=== PATIENT | female | born 1935 | race Caucasian/White ===

== ENCOUNTER 2020-09-20 18:55 | Inpatient (IN) | payer OTHER ==
[~2020-09-20] VITALS: Ht 162.6 cm; Wt 63.5 kg
--- NOTE | 2020-09-20 19:30 | NUR ---
JUVENAL FROM HOME FOR C/O LLE EDEMA SICNE THIS MORNING. PT DENIED ANY PAIN OR DIOSCOMFORT ON THE SITE. DENIED ANY FALL OR TRAUMA. NO SOB. NO CP. PT WAS PLACED IN BED 9, ON MONITR,. VSS. IV LINE STARTED .WILL CONT TO MONITOR ,
[2020-09-20 19:38] LABS: BASOPHILS % (AUTO) 0.3 % (0.0-2.0); HEMATOCRIT 24 % (33-45); HEMOGLOBIN 7.5 g/dL (11.5-14.8); LYMPHOCYTES # (AUTO) 0.6 /CMM (0.8-4.8); LYMPHOCYTES % (AUTO) 4.3 % (20.0-44.0); MEAN CORPUSCULAR HGB CONC 31 g/dl (31.0-36.0); MEAN CORPUSCULAR VOLUME 92 fL (82-100); MONOCYTES # (AUTO) 0.6 /CMM (0.1-1.30); MONOCYTES % (AUTO) 4.5 % (2.0-12.0); NEUTROPHILS # (AUTO) 12.6 /CMM (1.8-8.9); NEUTROPHILS % (AUTO) 90.9 % (43.0-81.0); PLATELET COUNT (AUTO) 226 /CMM (150-450); RED BLOOD CELL COUNT(AUTO) 2.61 MIL/uL (4.0-5.2); WHITE BLOOD COUNT (AUTO) 13.9 K/uL (4.3-11.0)
[2020-09-20 19:48] LABS: CALCIUM, SERUM 9.1 mg/dL (8.5-10.1); CARBON DIOXIDE 27 mmol/L (21-32); CHLORIDE 102 mmol/L (98-107); CREATININE 2.2 mg/dL (0.6-1.3); GLUCOSE 182 mg/dL (74-106); POTASSIUM 4.1 mmol/L (3.5-5.1); SODIUM SERUM 140 mmol/L (136-145); UREA NITROGEN, BLOOD 55 mg/dL (7-18)
--- NOTE | 2020-09-20 20:30 | NUR ---
CALLED ANANDA MAXWELL
--- NOTE | 2020-09-20 20:39 | NUR ---
DR WEBB SPEAKING WITH [facility]
--- NOTE | 2020-09-20 20:42 | NUR ---
ANANDA FOX SPEAKING WITH DR WEBB
--- NOTE | 2020-09-20 20:49 | NUR ---
DR. WEBB SPEAKING WITH RADIOLOGIST
[2020-09-20] MEDS ORDERED: HEPARIN INFUSION/D5W 500 ML IV ONE ×2 (20:51→21:00)
[2020-09-20] MEDS ORDERED: HEPARIN SODIUM, PORCINE 5000 UNITS/1 ML VIAL ONE (20:52)
--- NOTE | 2020-09-20 20:55 | NUR ---
covid swab collected and sent to lab
[2020-09-20] MEDS ORDERED: HEPARIN SODIUM, PORCINE 5000 UNITS/1 ML VIAL IV ONE (21:00)
--- NOTE | 2020-09-20 21:03 | NUR ---
CALLED [facility] PAGED DR BRYANT FOR ADMISSION
[2020-09-20 21:48] LABS: ALBUMIN 2.4 g/dL (3.4-5.0); BILIRUBIN,DIRECT 0.2 mg/dL (0.0-0.2); BILIRUBIN,TOTAL 0.6 mg/dL (0.2-1.0); TOTAL PROTEIN, SERUM 7.6 g/dL (6.4-8.2)
--- NOTE | 2020-09-20 23:14 | NUR ---
REPORT GIVEN TO SANTOS
[2020-09-20 23:20] VITALS: BP 120/46
--- NOTE | 2020-09-20 23:26 | NUR ---
pt was transferred to the third floor under ACLS.
[2020-09-20] MEDS ORDERED: ACETAMINOPHEN 650 MG/SUPP.RECT RC PRN (23:30)
[2020-09-20] MEDS ORDERED: ONDANSETRON HCL/PF 4 MG/2 ML VIAL IVP PRN (23:30)
[2020-09-20] MEDS ORDERED: MORPHINE SULFATE INJ 2 MG/ML DISP.SYRIN IV PRN (23:30)
--- NOTE | 2020-09-21 01:04 | NUR ---
ADMISSION NOTES: ADMITTED AN 84YO ESTONIAN SEPAKING FEMALE FROM HOME BROUGHT TO [facility] WITH A DIAGNOSIS OG DVT LEFT LEG, AND CHRONIC ANEMIA., PATIENT HAS CURRENTLY A HEPARIN DRIP ON GOING AT23CC/HR. ADMISSION ASSESSMENTS COMPLETED WITH THE HELP OF AN COCONUT BOILER. IV SITE ON LEFT AC WITH G#20 ON GOING HEPARIN DRIP. INSTRUCTED PATIENT TO REMAIN NPO. PATIENT FOR PTT BLOOD DRAW AT 0300 AM. WILL AWAIT FOR RESULTS. POSITIONED PATIENT COMFORTABLY IN BED. PLACED CALL LIGHT WITHIN PATIENT'S REACH. WILL MONITOR WHILE INPATIENT.
[2020-09-21] MEDS: IV D5/ 0.9% NACL 1,000 ML IV PRN ×2 (01:16→16:59)
[2020-09-21] MEDS: FAMOTIDINE/PF INJ 20 MG/2 ML VIAL IV SCH ×3 (01:18→21:27)
--- NOTE | 2020-09-21 01:46 | NUR ---
NURSES NOTES: CLARIFIED WITH WHETHER TO CONTINUE THE HEPARIN SQ MEDICATION ADMINISTRATION OR DC.PER DR. BRYANT DC THE HEPARIN SQ ORDER AND CONTINUE THE HEPARIN DRIP. ORDERS NOTED AND CARRIED OUT.
[2020-09-21 03:53] LABS: BASOPHILS # (AUTO) 0.1 /CMM (0.0-0.2); BASOPHILS % (AUTO) 0.5 % (0.0-2.0); EOSINOPHILS % (AUTO) 0.2 % (0.0-6.0); HEMATOCRIT 23 % (33-45); HEMOGLOBIN 7.3 g/dL (11.5-14.8); LYMPHOCYTES # (AUTO) 1.4 /CMM (0.8-4.8); LYMPHOCYTES % (AUTO) 9.4 % (20.0-44.0); MEAN CORPUSCULAR HGB CONC 32 g/dl (31.0-36.0); MEAN CORPUSCULAR VOLUME 91 fL (82-100); MONOCYTES # (AUTO) 0.7 /CMM (0.1-1.30); MONOCYTES % (AUTO) 5.1 % (2.0-12.0); NEUTROPHILS # (AUTO) 12.2 /CMM (1.8-8.9); NEUTROPHILS % (AUTO) 84.8 % (43.0-81.0); PLATELET COUNT (AUTO) 227 /CMM (150-450); RED BLOOD CELL COUNT(AUTO) 2.49 MIL/uL (4.0-5.2); WHITE BLOOD COUNT (AUTO) 14.4 K/uL (4.3-11.0)
[2020-09-21 04:00] VITALS: BP 94/54
--- NOTE | 2020-09-21 04:39 | NUR ---
NURSES NOTES: RECEIVED A CALL FROM LAB- [facility]- PATIENT WITH A PTT RESULT >170. DR BRYANT INFORMED THROUGH MESSAGING. HE RESPONDED AT 0529 TO FOLLOW PROTOCOL. PROTOCOL THEN INITIATED. PATIENT'S HEPARIN DRIP STOPPED FOR AN HOUR PER PROTOCOL. THEN PROTOCOL FOLLOWED TO DECREASE RATE- RESULTING TO 950MG/HR AT 19CC/HR RATE. SAID RATE FOLLOWED PER PROTOCOL. CO SIGNED BY YUAN GRAHAM RN.
[2020-09-21] MEDS: HEPARIN INFUSION/D5W 500 ML IV PRN (07:01)
--- NOTE | 2020-09-21 07:45 | NUR ---
CLOSING NOTES: PATIENT IN THE ROOM , UNABLE TO REST WELL. IVF ON RIGHT HAND G#22- HEPARIN DRIP AT 19ML/HR. IVF ON LEFT AC #20 D5 NS @70 ML/HR. NPO INSTRUCTIONS REINFORCED. BED ALARM KEPT ON. SAFETY AND FALL PRECAUTIONS OBSERVED. ASSISTED PATIENT TO MAKE USE OF THE BED HERCULES. ENDORSE PATIENT TO DAY SHIFT NURSE.
[2020-09-21 08:00] VITALS: BP 117/50
[2020-09-21 08:26] LABS: ALANINE AMINOTRANSFERASE 55 U/L (12-78); ALBUMIN 2.1 g/dL (3.4-5.0); ALKALINE PHOSPHATASE 122 U/L (46-116); ASPARTATE AMINOTRANSFERASE 52 U/L (15-37); BILIRUBIN,TOTAL 0.4 mg/dL (0.2-1.0); CALCIUM, SERUM 9.1 mg/dL (8.5-10.1); CARBON DIOXIDE 21 mmol/L (21-32); CHLORIDE 103 mmol/L (98-107); GLUCOSE 125 mg/dL (74-106); MAGNESIUM 2.4 mg/dL (1.8-2.4); POTASSIUM 4.2 mmol/L (3.5-5.1); SODIUM SERUM 140 mmol/L (136-145); UREA NITROGEN, BLOOD 57 mg/dL (7-18)
[2020-09-21] MEDS ORDERED: LOSA25TA27 PO (08:37)
[2020-09-21] MEDS ORDERED: HYDR25TA4 PO (08:37)
[2020-09-21] MEDS ORDERED: ATOR80TA PO (08:37)
[2020-09-21] MEDS ORDERED: CITA10TA9 PO (08:37)
[2020-09-21] MEDS ORDERED: LINA72CA PO (08:37)
[2020-09-21] MEDS ORDERED: OMEP20CA15 PO (08:37)
[2020-09-21 08:53] LABS: CHOLESTEROL 101 mg/dL (<200); HDL CHOLESTEROL 68 mg/dL (40-60); LDL 35 mg/dL (0-99); THYROID STIMULATING HORMONE 1.943 uIU/mL (0.358-3.74); TRIGLYCERIDES 59 mg/dL (30-150)
[2020-09-21] MEDS ORDERED: HEPARIN SODIUM, PORCINE 5000 UNITS/1 ML VIAL SQ SCH (09:00)
[2020-09-21] MEDS ORDERED: VANCOMYCIN 500 MG in IV D5W 100ml IV SCH (10:00)
[2020-09-21] MEDS ORDERED: PIPERACILLIN /TAZOBACTAM 2.25 G in IV D5W 50 ML IV SCH (12:00)
[2020-09-21 14:29] LABS: BILIRUBIN,URINE NEGATIVE (NEGATIVE); COLOR,URINE YELLOW (YELLOW); LEUKOCYTE ESTERASE ,URINE TRACE (NEGATIVE); NITRITE, URINE NEGATIVE (NEGATIVE); PROTEIN,URINE TRACE mg/dl (NEGATIVE); UGLUCOSE NEGATIVE (NEGATIVE); UROBILINOGEN,URINE 0.2 EU/dL (0.2)
[2020-09-21 16:03] VITALS: BP 116/55
[2020-09-21 17:51] LABS: BACTERIA,URINE 1+ /HPF (None Seen); RBC,URINE 0-2 /HPF (0-2); SQUAMOUS EPITHELIAL CELL,UR Few /HPF (None Seen)
[2020-09-21 17:52] LABS: COARSE GRANULAR CASTS,URINE Few /LPF (None Seen); URINE AMORPHOUS URATE Moderate /HPF (None Seen)
--- NOTE | 2020-09-21 18:32 | NUR ---
RN CLOSING NOTE PT IS AWAKE IN BED FINISHING UP BREAKFAST. PT IS A/OX3 AND COOPERATIVE. PT IS SEMI-FOWLERS POSITION WITH NO SIGNS OF RESPIRATORY DISTRESS. NO SOB PRESENT. PT IS CONTINENT. PT IS ABLE TO FEED INDEPENDENTLY. ROUTINE MEDS GIVEN. CALL LIGHT WITHIN REACH, BED IN THE LOWEST POSITION. SAFETY MEASURES IMPLEMENTED.
--- NOTE | 2020-09-21 18:37 | NUR ---
PT'S PTT FOR 1700 IS STILL PENDING UP TO THIS TIME.AWAITING FOR PTT RESULT.
--- NOTE | 2020-09-21 19:06 | NUR ---
CALLED LAB FOR PENDING PTT RESULT AND THEY SAID THAT THEY WILL RELEASE THE RESULT NOW.
[2020-09-21 19:32] VITALS: BP 98/43
--- NOTE | 2020-09-21 19:36 | NUR ---
NO PTT RESULT STILL AVAILABLE TO THIS TIME -CALLED LAB AND THEY STILL CAN'T GET THE RESULT.STOPPED PT'S HEPARIN DRIP AND ENDORSED TO NIGHT NURSE CARE.
--- NOTE | 2020-09-21 19:42 | NUR ---
BLOOD DRAWN FOR PTT (SECOND TIME) AND STILL NO RESULT OBTAINED.REPORTED TO TROLLEY WIRE INSTALLER AND NIGHT NURSE FOR FOLLOW UP.
[2020-09-21 20:00] VITALS: BP 98/84
--- NOTE | 2020-09-21 22:30 | NUR ---
PTT greater then 170 md Sneed called made aware titrate to 13ml/hr 650 units hours machine change john De La Paz
[2020-09-21 23:49] VITALS: BP 96/48
[2020-09-22] VITALS (7 sets, daily range): BP systolic 96–126; BP diastolic 43–55
[2020-09-22] MEDS: HEPARIN INFUSION/D5W 500 ML IV PRN (03:13)
--- NOTE | 2020-09-22 05:31 | NUR ---
CLOSING NOTES: AWAKE AND ORIENTATED X4 KHMER SPEAK MAIN LANGUAGE WITH SOME UNDERTANDING OF SAMI HEPARIN GTT D/T DVT LEFT LEG LAST PTT AND HEPARIN CHANGE 22:30 09/21 TO 650 UNITS/HR 13 ML/HR RT HAND ORDERED FOR NEXT PTT AT 04:30 PTT PENDING NO NOTEDD BLEEDING NOTED FROM HER GUMS/UA/NOSE ZOFRAN GIVEN 1 X FOR NAUSEA AND EFFECTIVE
[2020-09-22 07:01] LABS: BASOPHILS % (AUTO) 0.2 % (0.0-2.0); EOSINOPHILS % (AUTO) 0.8 % (0.0-6.0); HEMATOCRIT 21 % (33-45); LYMPHOCYTES # (AUTO) 1.2 /CMM (0.8-4.8); MEAN CORPUSCULAR HGB CONC 31 g/dl (31.0-36.0); MEAN CORPUSCULAR VOLUME 93 fL (82-100); MONOCYTES # (AUTO) 0.9 /CMM (0.1-1.30); MONOCYTES % (AUTO) 7.5 % (2.0-12.0); NEUTROPHILS # (AUTO) 9.9 /CMM (1.8-8.9); NEUTROPHILS % (AUTO) 81.5 % (43.0-81.0); PLATELET COUNT (AUTO) 244 /CMM (150-450); RED BLOOD CELL COUNT(AUTO) 2.22 MIL/uL (4.0-5.2); WHITE BLOOD COUNT (AUTO) 12.2 K/uL (4.3-11.0)
[2020-09-22 07:24] LABS: HEMOGLOBIN 6.4 g/dL (11.5-14.8)
--- NOTE | 2020-09-22 07:30 | NUR ---
EXTENSION SPECIALIST OPENING NOTES PATIENT IN BED. A/O X3. NO SOB NOTED. NO S/SX OF RESPIRATORY DISTRESS. TELE READING SR 97. IV SITE R HAND #22G, L AC #22 G, INTACT, D5NS RUNNING @ 70 ML/HR. PROVIDED SAFETY MEASURES. BED IN LOWEST POSITION, LOCKED. SIDE RAILS UP X2. CALL LIGHT WITHIN REACH. WILL CONTINUE PLAN OF CARE.
[2020-09-22 07:32] LABS: CALCIUM, SERUM 8.5 mg/dL (8.5-10.1); CARBON DIOXIDE 22 mmol/L (21-32); CHLORIDE 104 mmol/L (98-107); CREATININE 1.8 mg/dL (0.6-1.3); GLUCOSE 130 mg/dL (74-106); MAGNESIUM 2.3 mg/dL (1.8-2.4); PHOSPHORUS 4.6 mg/dL (2.5-4.9); POTASSIUM 4.2 mmol/L (3.5-5.1); SODIUM SERUM 140 mmol/L (136-145); UREA NITROGEN, BLOOD 63 mg/dL (7-18)
--- NOTE | 2020-09-22 07:32 | NUR ---
call from the lab with AM critical results H/H 6.4/20.7 plaved a text to the hospitalist to make him aware told the on coming RN turned the Hep gtt of until we hear from the MD .
--- NOTE | 2020-09-22 07:46 | NUR ---
RN NOTES CRITICAL LAB VALUE H/H 6.4/20.[address] WASHINGTON AND WAITING FOR ORDERS. WILL CONTINUE TO MONITOR FOR ANY SIGNS OF BLEEDING.
[2020-09-22] MEDS: FAMOTIDINE/PF INJ 20 MG/2 ML VIAL IV SCH ×2 (07:52→23:58)
[2020-09-22] MEDS: IV D5/ 0.9% NACL 1,000 ML IV PRN (09:27)
[2020-09-22 12:10] LABS: EOSINOPHILS % (MANUAL) 1 % (0-4); LYMPHOCYTES % (MANUAL) 9 % (16-48); MONOCYTES % (MANUAL) 10 % (0-11.0); MYELOCYTES % 1 % (0-0); NEUTROPHILS % (MANUAL) 79 (42-76)
[2020-09-22] MEDS: CEFTRIAXONE 1 G in IV D5W 50 ML IV SCH (13:00)
[2020-09-22] MEDS ORDERED: VANCOMYCIN 1 GM in IV D5W 250 ML IV SCH (14:00)
--- NOTE | 2020-09-22 19:41 | NUR ---
RN CLOSING NOTES PATIENT RESTING IN BED. A/O X3-4. AFEBRILE. IN NO APPARENT DISTRESS. R HAND @22G, L AC #20 G. SAFETY MEASURES MAINTAINED. BED IN LOWEST POSITION, LOCKED. SIDE RAILS UP X2. CALL LIGHT WITHIN REACH. WILL ENDORSE TO NIGHT FOR KOKI.
--- NOTE | 2020-09-22 20:53 | NUR ---
MS/TELE/RN PATIENT IS SLEEPING AT THIS TIME, ,APPEAR COMFORTABLE, NO SIGNS OF DISTRESS NOTED, FALL PRECAUTIONS PER PROTOCOL, CALL LIGHT IN REACH. WILL MONITOR.
[2020-09-22 22:00] LABS: FERRITIN 1596 ng/mL (8-388); THYROID STIMULATING HORMONE 1.412 uIU/mL (0.358-3.74)
[2020-09-23] VITALS (8 sets, daily range): BP systolic 116–142; BP diastolic 38–58
[2020-09-23] MEDS: IV D5/ 0.9% NACL 1,000 ML IV PRN ×2 (04:18→21:59)
--- NOTE | 2020-09-23 07:30 | NUR ---
MS/RN Opening note Patient received from [facility] shift. A/O X2-3, vital signs within normal range for patient, no fever noted. Heplock to right hand infusing normal saline at 70ml/hr, no signs of any infiltration seen. Continue to wait for blood to be ready for infusion. Consent already signed and placed in chart. Safety measures in place, call light within reach. Will continue to monitor and ensure safety.
--- NOTE | 2020-09-23 07:43 | NUR ---
MS/TELE/RN PATIENT IS AWAKE, ALERT, ORIENTED, COMFORTABLE, NO C/O PAIN, NO DISTRESS NOTED, ALL NEEDS ATTENDED AT THIS TIME, ENDORSED TO NEXT RN FOR CONTINUITY OF CARE.
[2020-09-23 08:10] LABS: AFP, TUMOR MARKER 3.7 ng/mL (0.0-8.3)
--- NOTE | 2020-09-23 08:18 | NUR ---
MS/RN Transfusion One unit blood transfusion started, vital signs to be recorded as per hospital protocol.
[2020-09-23] MEDS ORDERED: FAMOTIDINE (20 MG) 20 MG TABLET PO SCH (09:00)
[2020-09-23] MEDS ORDERED: FAMOTIDINE/PF INJ 20 MG/2 ML VIAL IV SCH (09:00)
--- NOTE | 2020-09-23 09:00 | NUR ---
MS/RN Medications Morning medications administered as ordered.
--- NOTE | 2020-09-23 10:26 | NUR ---
MS/RN Rounds Patient stable during transfusion, no reaction seen.
--- NOTE | 2020-09-23 11:30 | NUR ---
MS/RN S/B Yony CONDITIONING MACHINE OPERATOR Seen by CONDITIONING MACHINE OPERATOR - vascular surgery consult ordered for possible IVC filter placement, GI consult for gastrointestinal bleed.
[2020-09-23] MEDS: CEFTRIAXONE 1 G in IV D5W 50 ML IV SCH (12:52)
[2020-09-23 13:19] LABS: BASOPHILS # (AUTO) 0.1 /CMM (0.0-0.2); BASOPHILS % (AUTO) 0.5 % (0.0-2.0); EOSINOPHILS % (AUTO) 0.4 % (0.0-6.0); HEMATOCRIT 23 % (33-45); HEMOGLOBIN 7.3 g/dL (11.5-14.8); LYMPHOCYTES # (AUTO) 0.6 /CMM (0.8-4.8); LYMPHOCYTES % (AUTO) 5.6 % (20.0-44.0); MEAN CORPUSCULAR HGB CONC 32 g/dl (31.0-36.0); MEAN CORPUSCULAR VOLUME 93 fL (82-100); MONOCYTES # (AUTO) 0.5 /CMM (0.1-1.30); NEUTROPHILS # (AUTO) 9.3 /CMM (1.8-8.9); NEUTROPHILS % (AUTO) 88.5 % (43.0-81.0); PLATELET COUNT (AUTO) 215 /CMM (150-450); RED BLOOD CELL COUNT(AUTO) 2.46 MIL/uL (4.0-5.2); WHITE BLOOD COUNT (AUTO) 10.6 K/uL (4.3-11.0)
[2020-09-23 13:59] LABS: CALCIUM, SERUM 8.3 mg/dL (8.5-10.1); CREATININE 1.1 mg/dL (0.6-1.3); MAGNESIUM 2.1 mg/dL (1.8-2.4); PHOSPHORUS 3.1 mg/dL (2.5-4.9); POTASSIUM 3.9 mmol/L (3.5-5.1)
[2020-09-23] MEDS: VANCOMYCIN 0.75 GM in IV D5W 250 ML IV SCH (14:07)
[2020-09-23] MEDS: ACETAMINOPHEN 325 MG TABLET PO PRN (14:29)
--- NOTE | 2020-09-23 15:00 | NUR ---
MS/RN S/B Dr Butts Seen by Dr Butts - standing order given to transfuse one unit of PRBC if hemiglobin <7, avoid NSAID, EGD only to be scheduled for any evidence of overt bleeding.
[2020-09-23 16:49] LABS: EOSINOPHILS % (MANUAL) 1 % (0-4); LYMPHOCYTES % (MANUAL) 5 % (16-48); MONOCYTES % (MANUAL) 1 % (0-11.0); NEUTROPHILS % (MANUAL) 93 (42-76)
--- NOTE | 2020-09-23 18:20 | NUR ---
MS/RN Armond trough Armond trough scheduled for tomorrow at 1p.
--- NOTE | 2020-09-23 18:47 | NUR ---
MS/RN End note Patient remains in stable condition, will endorse to orthopedic rn.
--- NOTE | 2020-09-23 20:04 | NUR ---
MS/RN Consent Consent obtained for CT guided needle biopsy of retroperitoneal mass, needs to be NPO from midnight.
[2020-09-23] MEDS: PANTOPRAZOLE 40 MG VIAL IV SCH (21:58)
[2020-09-24] VITALS: BP 128/75
[2020-09-24 04:00] VITALS: BP 135/58
[2020-09-24 05:06] LABS: IMMUNOGLOBULIN A, SERUM 164 mg/dL (64-422); IMMUNOGLOBULIN G, SERUM 1119 mg/dL (586-1602); IMMUNOGLOBULIN M, SERUM 370 mg/dL (26-217)
[2020-09-24 06:18] LABS: BASOPHILS % (AUTO) 0.2 % (0.0-2.0); EOSINOPHILS % (AUTO) 0.9 % (0.0-6.0); HEMATOCRIT 24 % (33-45); HEMOGLOBIN 7.4 g/dL (11.5-14.8); LYMPHOCYTES # (AUTO) 0.8 /CMM (0.8-4.8); LYMPHOCYTES % (AUTO) 7.3 % (20.0-44.0); MEAN CORPUSCULAR HGB CONC 31 g/dl (31.0-36.0); MEAN CORPUSCULAR VOLUME 91 fL (82-100); MONOCYTES # (AUTO) 0.8 /CMM (0.1-1.30); MONOCYTES % (AUTO) 6.6 % (2.0-12.0); NEUTROPHILS # (AUTO) 9.7 /CMM (1.8-8.9); PLATELET COUNT (AUTO) 233 /CMM (150-450); RED BLOOD CELL COUNT(AUTO) 2.57 MIL/uL (4.0-5.2); WHITE BLOOD COUNT (AUTO) 11.4 K/uL (4.3-11.0)
[2020-09-24 07:30] LABS: CALCIUM, SERUM 9.1 mg/dL (8.5-10.1); CREATININE 0.9 mg/dL (0.6-1.3)
--- NOTE | 2020-09-24 07:30 | NUR ---
RN OPENING NOTE RECEIVED PATIENT RESTING IN BED. AWAKE, ALERT AND ORIENTED X 2. NO S/S PAIN NOTED. NPO FOR CT GUIDED NEEDLE BIOPSY OF RETROPERITONEAL MASS THIS AM. IV ACCESS TO RIGHT HAND INTACT AND PATENT. CONTINUE TO HOLD HEPARIN. CALL LIGHT WITHIN REACH. ASPIRATION, FALL AND SAFETY PRECAUTIONS MAINTAINED. WILL CONTINUE TO MONITOR.
[2020-09-24 08:34] VITALS: BP 116/60
[2020-09-24] MEDS: PANTOPRAZOLE 40 MG VIAL IV SCH ×2 (09:00→21:53)
[2020-09-24] MEDS ORDERED: HEPARIN SODIUM, PORCINE 5000 UNITS/1 ML VIAL SQ SCH (10:00)
[2020-09-24 12:17] VITALS: BP 119/49
[2020-09-24] MEDS: CEFTRIAXONE 1 G in IV D5W 50 ML IV SCH (13:28)
[2020-09-24] MEDS ORDERED: IOHEXOL-300 100 ML VIAL IV ONE (14:07)
[2020-09-24] MEDS ORDERED: IV NS 0.9% 250 ML IV ONE (14:08)
[2020-09-24 15:57] VITALS: BP 140/76
[2020-09-24] MEDS ORDERED: ENOXAPARIN SODIUM 60 MG/0.6 ML DISP.SYRIN SQ ONE (16:00)
[2020-09-24 16:01] LABS: BILIRUBIN,URINE NEGATIVE (NEGATIVE); COLOR,URINE YELLOW (YELLOW); LEUKOCYTE ESTERASE ,URINE NEGATIVE (NEGATIVE); NITRITE, URINE NEGATIVE (NEGATIVE); PROTEIN,URINE TRACE mg/dl (NEGATIVE); UGLUCOSE NEGATIVE (NEGATIVE); UROBILINOGEN,URINE 0.2 EU/dL (0.2)
[2020-09-24 16:18] LABS: BACTERIA,URINE RARE /HPF (None Seen); WBC,URINE 0-2 /HPF (0-3)
[2020-09-24] MEDS: VANCOMYCIN 0.75 GM in IV D5W 250 ML IV SCH (16:24)
[2020-09-24 16:42] LABS: EOSINOPHIL,URINE None Seen
[2020-09-24 16:56] LABS: CREATININE, URINE 101.5 MG/DL (30.0-125.0); URINE TOTAL PROTEIN 74.1 mg/dL (0-11.9)
--- NOTE | 2020-09-24 18:58 | NUR ---
RN MS NOTES PT IN BED, AWAKE, ALERT AND ORIENTED, DENIES PAIN, NOT IN DISTRESS, CALL LIGHT WITHIN REACH, SEEN BY DR. SINGH, PT FOR IVC FILTER PLACEMENT IN AM, CONSENT GIVEN, PM MEDS GIVEN, ALL NEEDS ATTENDED.
--- NOTE | 2020-09-24 19:46 | NUR ---
MS RN OPENING NOTES RECEIVED PATIENT IN BED. A/O X3 KAZAKH SPEAKING. ON ROOM AIR; TOLERATING WELL WITH NO SOB. MAINTAINED ON NPO DIET FOR IVF FILTER PLACEMENT SURGERY. IV ON LAC #20; PATENT AND INTACT. IV ON R HAND #18; PATENT AND INTACT. MIDLINE ON NEREIDA; PATENT AND INTACT; D5NS @ 70ML/HR. WILL CONTINUE TO MONITOR.
[2020-09-24] MEDS: IV D5/ 0.9% NACL 1,000 ML IV PRN (21:51)
[2020-09-24] MEDS ORDERED: ENOXAPARIN SODIUM 60 MG/0.6 ML DISP.SYRIN SQ SCH (23:00)
[2020-09-25] MEDS ORDERED: ANESTHESIA TRAY IN PYXIS 1 EA TRAY MC ONE (05:53)
[2020-09-25] MEDS ORDERED: LIDOCAINE 1% INJ 50 ML MDV IJ ONE (05:53)
[2020-09-25] MEDS ORDERED: IOHEXOL 240MG/ML 50 ML IV ONE (05:53)
--- NOTE | 2020-09-25 05:58 | NUR ---
MS RN NOTES - SURGERY IVC FILTER PLACEMENT. PATIENT SIGNED FORMS FOR: BLOOD TRANSFUSION & ANESTHESIA. PREOP CHECKLIST DONE. NOTIFIED RAJANI (SON) FOR IVC FILTER PLACEMENT SURGERY.GAVE REPORT TO DICK. PT TRANSPORTED TO SURGERY BY [facility].
[2020-09-25 06:06] LABS: BASOPHILS % (AUTO) 0.2 % (0.0-2.0); EOSINOPHILS % (AUTO) 0.7 % (0.0-6.0); HEMATOCRIT 22 % (33-45); HEMOGLOBIN 7.1 g/dL (11.5-14.8); LYMPHOCYTES # (AUTO) 0.8 /CMM (0.8-4.8); LYMPHOCYTES % (AUTO) 7.7 % (20.0-44.0); MEAN CORPUSCULAR HGB CONC 33 g/dl (31.0-36.0); MEAN CORPUSCULAR VOLUME 89 fL (82-100); MONOCYTES # (AUTO) 0.8 /CMM (0.1-1.30); MONOCYTES % (AUTO) 7.7 % (2.0-12.0); NEUTROPHILS # (AUTO) 8.9 /CMM (1.8-8.9); NEUTROPHILS % (AUTO) 83.7 % (43.0-81.0); PLATELET COUNT (AUTO) 233 /CMM (150-450); RED BLOOD CELL COUNT(AUTO) 2.43 MIL/uL (4.0-5.2); WHITE BLOOD COUNT (AUTO) 10.7 K/uL (4.3-11.0)
[2020-09-25 07:26] LABS: CALCIUM, SERUM 8.6 mg/dL (8.5-10.1); CREATININE 0.8 mg/dL (0.6-1.3); POTASSIUM 3.8 mmol/L (3.5-5.1)
--- NOTE | 2020-09-25 07:50 | NUR ---
m/s sugar trucker: notes received pt from recovery room with dx: s/p ivc filter. dressing to right femoral in place. no bleeding/drainage noted. will continue to monitor.
[2020-09-25] MEDS: PANTOPRAZOLE 40 MG VIAL IV SCH ×2 (08:57→21:57)
[2020-09-25 09:06] LABS: *SPE A/G RATIO 0.6 (0.7-1.7); *SPE ALBUMIN 2.2 g/dL (2.9-4.4); *SPE ALPHA-1-GLOBULIN 0.6 g/dL (0.0-0.4); *SPE ALPHA-2-GLOBULIN 1.2 g/dL (0.4-1.0); *SPE BETA GLOBULIN 0.8 g/dL (0.7-1.3); *SPE GLOBULIN, TOTAL 3.8 g/dL (2.2-3.9); *SPE M-SPIKE Not Observed g/dL (Not Observed); *SPEGAMMA GLOBULIN 1.2 g/dL (0.4-1.8)
--- NOTE | 2020-09-25 10:13 | NUR ---
PER PT RN CHECKING WITH PT PMD IF ANGIOGRAM IS NEEDED WILL CALL WHEN CLARIFIED PK
--- NOTE | 2020-09-25 12:00 | NUR ---
m/s sewage plant attendant: notes gerard (veneer jointer offbearer, mat worker) here and clarify heparin order by dr. casillas despite of low hgb/hct, stated, "it's okay to give, it's for prophylactic."
[2020-09-25] MEDS: HEPARIN SODIUM, PORCINE 5000 UNITS/1 ML VIAL SQ SCH ×2 (12:34→21:59)
[2020-09-25] MEDS: CEFTRIAXONE 1 G in IV D5W 50 ML IV SCH (12:35)
[2020-09-25] MEDS: VANCOMYCIN 0.75 GM in IV D5W 250 ML IV SCH (13:55)
[2020-09-25] MEDS ORDERED: IV NS 0.9% 250 ML IV ONE (14:55)
[2020-09-25] MEDS ORDERED: IOHEXOL-350 100 ML VIAL IV ONE (14:55)
--- NOTE | 2020-09-25 15:05 | NUR ---
m/s air export operations agent: notes pt taken down to ct pulmo angio with chart and consent via bed accompanied by cristopher (1d4 Pty).
--- NOTE | 2020-09-25 15:25 | NUR ---
m/s account engineer: notes pt back from ct. placed call light with in reach. hob elevated. will continue to monitor.
[2020-09-25] MEDS: LOSARTAN POTASSIUM 25 MG TABLET PO SCH (16:56)
--- NOTE | 2020-09-25 17:55 | NUR ---
m/s slab tripper: steven hays (pediatric np, forest nursery worker) notified re: ct pulmo angio results and informed me that she will review the result and will call me back.
--- NOTE | 2020-09-25 18:05 | NUR ---
m/s supervisor roving: notes gerard (branch library clerk) called and informed me that she already spoke to dr. casillas and dr. garcia about the ct pulmo angio results, pt needs biopsy to be done tomorrow and to hold am dose of heparin. f/u made to radiology dept re: ct needle biopsy scheduled for tomorrow, spoke to stephen (avery) and informed me that he will notify dr. pinto about it and let him know. cn made aware.
--- NOTE | 2020-09-25 19:10 | NUR ---
m/s admissions counselor: notes report given to aisha (mike) for continuity of care.
[2020-09-25 20:00] VITALS: BP 143/61
--- NOTE | 2020-09-25 20:00 | NUR ---
MS RN NOTE PT RECEIVED IN BED AWAKE. A/O X 3 KYRGYZ SPEAKING, NO SOB, NO DISTRESS OR DISCOMFORT NOTED. DENIES PAIN. D5NS INFUSING AT 70 ML/HR, NO S/S OF INFILTRATION NOTED. ON TELE SR WITH 1ST DEGREE AV BLOCK HR 61. SIDE RIALS UP X 2 AND CALL LIGHT WITHIN REACH. VSS. CONTINUE TO MONITOR HER. Addendum: 09/26/20 at 0558 by MYLA MCKOY RN error pt not on tele, sr with ist degree av block hr 61 written in error.
[2020-09-25 21:19] VITALS: BP 143/61
[2020-09-25] MEDS: ATORVASTATIN 40 MG TABLET PO SCH (21:57)
[2020-09-25] MEDS: IV D5/ 0.9% NACL 1,000 ML IV PRN (23:43)
[2020-09-26] MEDS ORDERED: Potassium Chloride 40 MEQ in IV D5/0.45 NACL 1,000 ML IV PRN (01:00)
[2020-09-26] MEDS: HEPARIN SODIUM, PORCINE 5000 UNITS/1 ML VIAL SQ SCH (04:37)
--- NOTE | 2020-09-26 06:55 | NUR ---
MS RN NOTE PT IN BED ASLEEP, NO DISTRESS OR DISCOMFORT NOTED. AROUSABLE, DENIES PAIN. SIDE RAILS UP X 2 AND CALL LIGHT WITHIN REACH. WILL ENDORSE TO DAY SHIFT NURSE FOR CONTINUE TO CARE.
[2020-09-26 07:16] LABS: CALCIUM, SERUM 8.4 mg/dL (8.5-10.1); CREATININE 0.9 mg/dL (0.6-1.3); POTASSIUM 3.5 mmol/L (3.5-5.1)
--- NOTE | 2020-09-26 07:46 | NUR ---
MS RN OPENING NOTE PATIENT IS IN BED RESTING. PATIENT IS IN NO ACUTE DISTRESS. PATIENT IS ON ROOM AIR. NO SOB NOTED. SAFETY PRECAUTIONS ARE IN PLACE. BED IS LOCKED AND IN THE LOWEST POSITION. SIDE RAILS ARE UP, CALL LIGHT WITHIN REACH. WILL CONTINUE TO MONITOR CLOSELY THROUGH OUT THE SHIFT.
[2020-09-26 08:00] VITALS: BP 133/52
[2020-09-26] MEDS ORDERED: OMEPRAZOLE 20 MG CAPSULE.DR PO SCH (09:00)
[2020-09-26] MEDS: HYDROCHLOROTHIAZIDE 25 MG TABLET PO SCH (09:39)
[2020-09-26] MEDS: CITALOPRAM HYDROBROMIDE 10 MG TABLET PO SCH (09:40)
[2020-09-26] MEDS: PANTOPRAZOLE 40 MG VIAL IV SCH ×2 (09:40→20:48)
[2020-09-26] MEDS: ACETAMINOPHEN 325 MG TABLET PO PRN (09:40)
[2020-09-26] MEDS: LOSARTAN POTASSIUM 25 MG TABLET PO SCH ×2 (09:41→17:26)
--- NOTE | 2020-09-26 10:22 | NUR ---
MS RN NOTE PER DR. ROLON PATIENT WILL NOT HAVE CT NEEDLE BIOPSY DONE, DUE TO PULMONARY EMBOLISM. WILL START COAGULATION THERAPY.
[2020-09-26] MEDS ORDERED: HEPARIN INFUSION/D5W 500 ML IV PRN (12:30)
[2020-09-26] MEDS: CEFTRIAXONE 1 G in IV D5W 50 ML IV SCH (12:49)
[2020-09-26] MEDS: VANCOMYCIN 0.75 GM in IV D5W 250 ML IV SCH (13:49)
--- NOTE | 2020-09-26 15:43 | NUR ---
MS RN NOTE PATIENT STARTED ON HEPARIN INFUSION AT 15:30. NO SIGNS OR SYMPTOMS OF BLEEDING NOTED. BED ALARM IS CHRONOMETER ASSEMBLER LIGHT WITHIN REACH. CHECK APTT LEVEL IN 6 HOURS AT 21:30. MONITORING PATIENT CLOSELY.
[2020-09-26 16:00] VITALS: BP 132/71
[2020-09-26 16:35] LABS: BASOPHILS % (AUTO) 0.2 % (0.0-2.0); HEMATOCRIT 21 % (33-45); LYMPHOCYTES # (AUTO) 0.8 /CMM (0.8-4.8); MEAN CORPUSCULAR HGB CONC 31 g/dl (31.0-36.0); MEAN CORPUSCULAR VOLUME 89 fL (82-100); MONOCYTES # (AUTO) 0.8 /CMM (0.1-1.30); NEUTROPHILS # (AUTO) 9.8 /CMM (1.8-8.9); NEUTROPHILS % (AUTO) 84.8 % (43.0-81.0); PLATELET COUNT (AUTO) 255 /CMM (150-450); RED BLOOD CELL COUNT(AUTO) 2.35 MIL/uL (4.0-5.2); WHITE BLOOD COUNT (AUTO) 11.6 K/uL (4.3-11.0)
[2020-09-26 16:37] LABS: HEMOGLOBIN 6.6 g/dL (11.5-14.8)
[2020-09-26 17:14] LABS: LYMPHOCYTES % (MANUAL) 8 % (16-48); MONOCYTES % (MANUAL) 7 % (0-11.0); NEUTROPHILS % (MANUAL) 85 (42-76)
--- NOTE | 2020-09-26 19:40 | NUR ---
RN opening notes Pt is resting in bed comfortably. Pt is alert and orientedX3. Pt speaks Cypriot and able to make needs known. Respiration is normal in room air. No SOB. No S/S of distress noted. NEREIDA midline is clean, intact and infusing well heparin. LAC# 20 is clean, intact and SL. R hand # 18 is clean, intact and SL. Safety precautions is maintained. Bed at low position, brakes locked, side rails upX2, hob elevated and call light is within reach. Will continue to monitor.
[2020-09-26 20:00] VITALS: BP 143/45
--- NOTE | 2020-09-26 20:38 | NUR ---
MS RN CLOSING NOTE PATIENT IS IN BED RESTING. PATIENT IN NO ACUTE DISTRESS. PATIENT IS ON ROOM AIR. NO SOB NOTED. SAFETY PRECAUTIONS ARE IN PLACE. BED IN THE LOWEST POSITION WITH BED ALARM ON. SIDE RAILS ARE UP, CALL LIGHT WITHIN REACH. ENDORSE PATIENTS TO THE MANAGER TRUST NURSE FOR KOKI.
[2020-09-26] MEDS: ATORVASTATIN 40 MG TABLET PO SCH (21:04)
--- NOTE | 2020-09-26 21:10 | NUR ---
RN notes Informed and notified Dr. Odonnell regarding Pt's Hgb 6.[address] Odonnell ordered to hold heparin infusion and transfuse 1 unit PRBC. Order carried out. Charge nurse is aware and informed.
--- NOTE | 2020-09-26 23:45 | NUR ---
RN notes Explained and informed Pt regarding blood transfusion order from MD. Pt verbalize understanding and signed the consent. Signed by two RN's. Will continue to monitor.
[2020-09-27] VITALS (7 sets, daily range): BP systolic 127–142; BP diastolic 52–75
--- NOTE | 2020-09-27 00:07 | NUR ---
RN notes Called and spoke with blood bank Ana regarding Pt's PRBC. Ana said Pt has antibody and it takes awhile. Will continue to monitor.
[2020-09-27] MEDS: ACETAMINOPHEN 325 MG TABLET PO PRN (02:07)
--- NOTE | 2020-09-27 03:42 | NUR ---
RN notes Stopped heparin infusion per charge nurse instruction because PRBC is not ready and low H&H. Checked with blood bank, Ana said it takes time for PRBC. Will continue to monitor.
[2020-09-27 07:00] LABS: CALCIUM, SERUM 8.4 mg/dL (8.5-10.1); CREATININE 0.8 mg/dL (0.6-1.3); POTASSIUM 3.6 mmol/L (3.5-5.1)
--- NOTE | 2020-09-27 07:00 | NUR ---
RN closing notes Pt is resting in bed comfortably. Pt is alert and orientedX3. Pt speaks Nicaraguan and able to make needs known. Respiration is normal in room air. No SOB. No S/S of distress noted. VS is stable. Afebrile. NEREIDA midline is clean, intact and SL. LAC# 20 is clean, intact and SL. R hand # 18 is clean, intact and SL. Kept Pt clean, dry and comfortable. All needs met and attended. Safety precautions is maintained. Bed at low position, brakes locked, side rails upX2, hob elevated and call light is within reach. Will endorse to morning nurse for KOKI.
[2020-09-27 09:08] LABS: BASOPHILS % (AUTO) 0.3 % (0.0-2.0); EOSINOPHILS % (AUTO) 1.2 % (0.0-6.0); HEMATOCRIT 21 % (33-45); LYMPHOCYTES # (AUTO) 0.8 /CMM (0.8-4.8); MEAN CORPUSCULAR HGB CONC 31 g/dl (31.0-36.0); MEAN CORPUSCULAR VOLUME 91 fL (82-100); MONOCYTES # (AUTO) 0.8 /CMM (0.1-1.30); MONOCYTES % (AUTO) 6.5 % (2.0-12.0); PLATELET COUNT (AUTO) 288 /CMM (150-450); RED BLOOD CELL COUNT(AUTO) 2.36 MIL/uL (4.0-5.2); WHITE BLOOD COUNT (AUTO) 11.7 K/uL (4.3-11.0)
[2020-09-27] MEDS: PANTOPRAZOLE 40 MG TABLET.DR PO SCH ×2 (09:16→20:31)
[2020-09-27] MEDS: CITALOPRAM HYDROBROMIDE 10 MG TABLET PO SCH (09:16)
[2020-09-27] MEDS: LOSARTAN POTASSIUM 25 MG TABLET PO SCH ×2 (09:17→17:28)
[2020-09-27] MEDS: HYDROCHLOROTHIAZIDE 25 MG TABLET PO SCH (09:19)
[2020-09-27 09:47] LABS: HEMOGLOBIN 6.7 g/dL (11.5-14.8)
[2020-09-27 13:23] LABS: BAND % (MANUAL) 1 % (0.0-5.0); EOSINOPHILS % (MANUAL) 1 % (0-4); LYMPHOCYTES % (MANUAL) 8 % (16-48); MONOCYTES % (MANUAL) 7 % (0-11.0); NEUTROPHILS % (MANUAL) 83 (42-76)
[2020-09-27] MEDS ORDERED: SOD FERRIC GLUC 125 MG in IV NS 0.9% 100 ML IV SCH (14:00)
[2020-09-27] MEDS: CEFTRIAXONE 1 G in IV D5W 50 ML IV SCH (14:19)
[2020-09-27] MEDS: VANCOMYCIN 0.75 GM in IV D5W 250 ML IV SCH (15:37)
--- NOTE | 2020-09-27 15:37 | NUR ---
MS RN NOTES VANCO THROUGH AVAILABLE IN THERAPEUTIC RANGE, SCHEDULED VANCO GIVEN.
[2020-09-27 17:21] LABS: HEMOGLOBIN 8.3 g/dL (11.5-14.8)
--- NOTE | 2020-09-27 19:29 | NUR ---
MS RN NOTES PATIENT IN BED RESTING NO SOB OR ACUTE DISTRESS NOTED. ALL DUE MEDICATIONS ADMINISTERED. ALL NEEDS MET. PATIENT S/P 1 UNIT OF PRBC TOLARATED WELL. NO REACTION NOTED. SAFETY MEASURES IN PLACE. NO ACUTE CHANGES NOTED. ENDORSED CARE TO PM SHIFT.
--- NOTE | 2020-09-27 19:45 | NUR ---
RN NOTES PT RECEIVED IN BED ALERT AND ORIENTED X 2-3 ON NASAL CANNULA WITH 3LM NO RESPIRATORY DISTRESS NOTED. NO PAIN OR DISCOMFORT NOTED OR REPORTED. CALL LIGHT WITHIN REACH. BED IN A LOW LOCKED POSITION. SIDE RAILS UP X2 ALL NURSING NEEDS MET. CALL LIGHT WITHIN REACH. PT FOR DISCHARGE TONIGHT VIA AMBULANCE AWAITING OLERICULTURE PROFESSOR. WILL CONTINUE TO MONITOR. Addendum: 09/27/20 at 2113 by MAKSIM CHAVEZ RN WRONG PT DISREGARD WALDO NOTE
--- NOTE | 2020-09-27 20:01 | NUR ---
NURSES OPENING NOTES: RECEIVED PATIENT IN BED, AWAKE, SPEAKS KOSOVAN ONLY. PT IS ALERT AND ORIENTED X3, COMPLAINED OF ABDOMINAL PAIN THIS TIME. WILL GIVE MEDICATIONS ORDERED. IV SITE ON RIGHT HANDAND MIDLINE ON NEREIDA IN PLACE. PATIENT ON BED REST. WILL ATTEND TO EVERY PATIENT'S NEEDS.
[2020-09-27] MEDS: ATORVASTATIN 40 MG TABLET PO SCH (22:07)
--- NOTE | 2020-09-28 05:59 | NUR ---
CLOSING NOTES: PAITENT IN BED RESTING COMFORTABLY. NO COMPLAINS OF PAIN OR DISCOMFORT. RESPRIATIONS EVEN AND UNLABORED. ATTENDED TO ALL PATIENT'S NEEDS. SAFETY AND FALL PRECAUTIONS OBSERVED. WILL ENDORSE PATIENT'S CARE TO DAY SHIFT NURSE.
--- NOTE | 2020-09-28 07:19 | NUR ---
MS/RN OPENING NOTE RECEIVED PATIENT FROM RE ETCHER NURSE PATIENT A/O X3 ROMANIAN SPEAKING. PATIENT IS ASLEEP IN BED, EASILY WOKEN UP. PATIENT ON ROOM AIR TOLERATING WELL, BREATHING EVEN, NON LABORED, NO SOB NOTED. NO ACUTE DISTRESS NOTED AT THIS TIME. NEREIDA MIDLINE INTACT AND PATENT. SAFETY MEASURE IN PLACE BED LOCKED AND IN LOWEST POSITION, CALL LIGHT WITHIN REACH WILL CONTINUE TO MONITOR AND ENSURE SAFETY.
[2020-09-28 07:32] LABS: CALCIUM, SERUM 8.7 mg/dL (8.5-10.1); CREATININE 0.9 mg/dL (0.6-1.3); POTASSIUM 3.5 mmol/L (3.5-5.1)
[2020-09-28 08:33] VITALS: BP 140/61
[2020-09-28] MEDS: PANTOPRAZOLE 40 MG TABLET.DR PO SCH ×2 (09:12→21:05)
[2020-09-28] MEDS: HYDROCHLOROTHIAZIDE 25 MG TABLET PO SCH (09:12)
[2020-09-28] MEDS: CITALOPRAM HYDROBROMIDE 10 MG TABLET PO SCH (09:12)
[2020-09-28] MEDS: LOSARTAN POTASSIUM 25 MG TABLET PO SCH ×2 (09:13→16:38)
[2020-09-28 09:41] LABS: BASOPHILS % (AUTO) 0.2 % (0.0-2.0); EOSINOPHILS % (AUTO) 0.6 % (0.0-6.0); HEMATOCRIT 27 % (33-45); HEMOGLOBIN 8.5 g/dL (11.5-14.8); LYMPHOCYTES # (AUTO) 0.9 /CMM (0.8-4.8); LYMPHOCYTES % (AUTO) 6.9 % (20.0-44.0); MEAN CORPUSCULAR HGB CONC 32 g/dl (31.0-36.0); MEAN CORPUSCULAR VOLUME 95 fL (82-100); MONOCYTES # (AUTO) 0.9 /CMM (0.1-1.30); MONOCYTES % (AUTO) 6.9 % (2.0-12.0); NEUTROPHILS # (AUTO) 11.2 /CMM (1.8-8.9); NEUTROPHILS % (AUTO) 85.4 % (43.0-81.0); PLATELET COUNT (AUTO) 300 /CMM (150-450); RED BLOOD CELL COUNT(AUTO) 2.87 MIL/uL (4.0-5.2); WHITE BLOOD COUNT (AUTO) 13.1 K/uL (4.3-11.0)
[2020-09-28] MEDS: HEPARIN SODIUM, PORCINE 5000 UNITS/1 ML VIAL SQ SCH ×2 (10:33→21:05)
[2020-09-28] MEDS: CEFTRIAXONE 1 G in IV D5W 50 ML IV SCH (13:05)
[2020-09-28] MEDS: VANCOMYCIN 0.75 GM in IV D5W 250 ML IV SCH (14:30)
[2020-09-28] MEDS: ACETAMINOPHEN 325 MG TABLET PO PRN (15:46)
[2020-09-28 17:40] VITALS: BP 144/56
--- NOTE | 2020-09-28 18:55 | NUR ---
MS/RN CLOSING NOTE PATIENT IS RESTING COMFORTABLY IN BED. PATIENT IS A/O X3 FRENCH SPEAKING. RESPIRATION NORMAL ON ROOM AIR, TOLERATING WELL. BREATHING EVEN NON LABORED. NO SOB NOTED. NEREIDA MIDLINE INTACT AND PATENT. ALL NEEDS MET THROUGHOUT THE SHIFT. NO ACUTE DISTRESS NOTED. SAFETY MEASURES IN PLACE, WILL ENDORSE TO DEEP SUBMERGENCE VEHICLE OPERATOR NURSE.
[2020-09-28 20:00] VITALS: BP 137/65
[2020-09-28] MEDS: ATORVASTATIN 40 MG TABLET PO SCH (21:05)
--- NOTE | 2020-09-29 06:49 | NUR ---
MS/RN CLOSING NOTE PATIENT IN BED. PATIENT IS A/O X3 SUDANESE SPEAKING. RESPIRATION NORMAL ON ROOM AIR BREATHING EVEN NON LABORED. DENIES SOB. NEREIDA MIDLINE INTACT AND PATENT. PT IN NO APPARENT DISTRESS. BED DOWN LOCKED BED ALARM ACTIVE. SRX2. WILL ENDORSE POC TO NEXT SHIFT FOR KOKI.
--- NOTE | 2020-09-29 07:35 | NUR ---
MS/RN OPENING NOTE THE PATIENT IS RECEIVED IN BED. PATIENT IS ALERT AND ORIENTED 3. DENIES PAIN. IN ROOM AIR AND DENIES SOB. RESPIRATION REGULAR AND UNLABORED. NEREIDA MIDLINE PATENT AND SALINE LOCKED. BED LOW AND LOCKED. SIDE RAILS UP X3. CALL LIGHT WITHIN REACH. WILL CONTINUE TO MONITOR.
[2020-09-29 08:00] VITALS: BP 143/63
[2020-09-29] MEDS: PANTOPRAZOLE 40 MG TABLET.DR PO SCH ×2 (08:28→21:01)
[2020-09-29] MEDS: LOSARTAN POTASSIUM 25 MG TABLET PO SCH ×2 (08:28→16:47)
[2020-09-29] MEDS: HYDROCHLOROTHIAZIDE 25 MG TABLET PO SCH (08:29)
[2020-09-29] MEDS: CITALOPRAM HYDROBROMIDE 10 MG TABLET PO SCH (08:29)
[2020-09-29] MEDS: HEPARIN SODIUM, PORCINE 5000 UNITS/1 ML VIAL SQ SCH ×3 (08:32→21:03)
[2020-09-29 12:11] LABS: BASOPHILS # (AUTO) 0.1 /CMM (0.0-0.2); BASOPHILS % (AUTO) 0.4 % (0.0-2.0); EOSINOPHILS % (AUTO) 0.2 % (0.0-6.0); HEMATOCRIT 27 % (33-45); HEMOGLOBIN 8.9 g/dL (11.5-14.8); LYMPHOCYTES # (AUTO) 0.6 /CMM (0.8-4.8); LYMPHOCYTES % (AUTO) 4.6 % (20.0-44.0); MEAN CORPUSCULAR HGB CONC 33 g/dl (31.0-36.0); MEAN CORPUSCULAR VOLUME 92 fL (82-100); MONOCYTES # (AUTO) 0.7 /CMM (0.1-1.30); MONOCYTES % (AUTO) 5.1 % (2.0-12.0); NEUTROPHILS # (AUTO) 12.5 /CMM (1.8-8.9); NEUTROPHILS % (AUTO) 89.7 % (43.0-81.0); PLATELET COUNT (AUTO) 284 /CMM (150-450); RED BLOOD CELL COUNT(AUTO) 2.99 MIL/uL (4.0-5.2); WHITE BLOOD COUNT (AUTO) 13.9 K/uL (4.3-11.0)
[2020-09-29 12:21] LABS: CALCIUM, SERUM 8.6 mg/dL (8.5-10.1); CREATININE 0.9 mg/dL (0.6-1.3); POTASSIUM 4.2 mmol/L (3.5-5.1)
[2020-09-29] MEDS: ACETAMINOPHEN 325 MG TABLET PO PRN (12:28)
[2020-09-29] MEDS: CEFTRIAXONE 1 G in IV D5W 50 ML IV SCH (12:28)
[2020-09-29] MEDS: VANCOMYCIN 0.75 GM in IV D5W 250 ML IV SCH (14:05)
[2020-09-29 15:53] VITALS: BP 130/59
--- NOTE | 2020-09-29 18:25 | NUR ---
MS/RN NOTE THE PATIENT ALERT AND ORIENTED X3. IN ROOM AIR AND OXYGEN SATURATION IN ROOM AIR IS AT 96%. DENIES SOB. RESPIRATION REGULAR AND UNLABORED. DENIES PAIN. THE PATIENT IS IN NO APPARENT DISTRESS. RIGHT HAND G 24 PATENT AND SALINE LOCKED. BED LOW AND LOCKED. SIDE RAILS UP X3. CALL LIGHT WITHIN REACH. WILL ENDORSE TO BUILDING DRAFTER.
--- NOTE | 2020-09-29 19:10 | NUR ---
RN NOTE Patient Received. Patient is noted in bed, awake, alert and oriented x3. Breathing even and non labored continues on room air with no signs of acute distress of shortness of breath. IV site is noted to NEREIDA midline and Right hand noted patent and intact. Safety precautions in place with bed noted in lowest position and locked. Call light within reach. All needs attended to promptly. Will continue plan of care as ordered.
[2020-09-29 20:00] VITALS: BP 136/48
[2020-09-29] MEDS: ATORVASTATIN 40 MG TABLET PO SCH (21:01)
[2020-09-30] MEDS: HEPARIN SODIUM, PORCINE 5000 UNITS/1 ML VIAL SQ SCH ×3 (05:53→21:37)
[2020-09-30 07:15] LABS: BASOPHILS % (AUTO) 0.3 % (0.0-2.0); EOSINOPHILS % (AUTO) 0.6 % (0.0-6.0); HEMATOCRIT 24 % (33-45); HEMOGLOBIN 8.3 g/dL (11.5-14.8); LYMPHOCYTES # (AUTO) 0.6 /CMM (0.8-4.8); MEAN CORPUSCULAR HGB CONC 34 g/dl (31.0-36.0); MEAN CORPUSCULAR VOLUME 93 fL (82-100); MONOCYTES # (AUTO) 0.7 /CMM (0.1-1.30); MONOCYTES % (AUTO) 5.8 % (2.0-12.0); NEUTROPHILS # (AUTO) 10.9 /CMM (1.8-8.9); NEUTROPHILS % (AUTO) 88.3 % (43.0-81.0); PLATELET COUNT (AUTO) 309 /CMM (150-450); RED BLOOD CELL COUNT(AUTO) 2.61 MIL/uL (4.0-5.2); WHITE BLOOD COUNT (AUTO) 12.4 K/uL (4.3-11.0)
--- NOTE | 2020-09-30 07:24 | NUR ---
RN NOTE Patient is noted in bed, awake, alert and oriented x3. Breathing even and non labored continues on room air with no signs of acute distress of shortness of breath. IV site is noted to TEAGAN midline and Right hand noted patent and intact. All medications administered as per order and tolerated well. Safety precautions in place with bed noted in lowest position and locked. Call light within reach. All needs attended to promptly. Will endorse continue plan of care as ordered.
[2020-09-30 07:27] LABS: CALCIUM, SERUM 8.5 mg/dL (8.5-10.1); CREATININE 0.9 mg/dL (0.6-1.3); MAGNESIUM 1.9 mg/dL (1.8-2.4); PHOSPHORUS 3.3 mg/dL (2.5-4.9); POTASSIUM 3.6 mmol/L (3.5-5.1)
--- NOTE | 2020-09-30 07:40 | NUR ---
MS/RN OPENING NOTE THE PATIENT IS RECEIVED IN BED. PATIENT IS ALERT AND ORIENTED X3, ABLE TO MAKE NEEDS KNOWN VERBALLY. DENIES SOB. IN ROOM AIR. RESPIRATION REGULAR AND UNLABORED. DENIES PAIN. RIGHT HAND G 24 PATENT AND SALINE LOCKED. LEFT UPPER ARM MIDLINE PATENT AND SALINE LOCKED. BED LOW AND LOCKED. SIDE RAILS UP X3. CALL LIGHT WITHIN REACH. WILL CONTINUE TO MONITOR.
[2020-09-30 08:00] VITALS: BP 126/70
[2020-09-30] MEDS: CITALOPRAM HYDROBROMIDE 10 MG TABLET PO SCH (08:12)
[2020-09-30] MEDS: HYDROCHLOROTHIAZIDE 25 MG TABLET PO SCH (08:12)
[2020-09-30] MEDS: PANTOPRAZOLE 40 MG TABLET.DR PO SCH ×2 (08:12→21:48)
[2020-09-30] MEDS: LOSARTAN POTASSIUM 25 MG TABLET PO SCH ×2 (08:13→17:46)
[2020-09-30 16:00] VITALS: BP 130/63
--- NOTE | 2020-09-30 17:10 | NUR ---
MS/RN NOTE CLARIFIED WITH MATTRESS PACKER DERRICK DIET ORDER: PER MATTRESS PACKER CARDIAC DIET TO BE SERVED 09/30/20 DINNER TIME AND NPO AFTER MIDNIGHT. NOTED AND CARRIED OUT.
--- NOTE | 2020-09-30 18:42 | NUR ---
MS/RN CLOSING NOTE THE PATIENT ALERT AND ORIENTED X3. IN ROOM AIR AND OXYGEN SATURATION IS AT 98%. DENIES SOB. RESPIRATION REGULAR AND UNLABORED. DENIES PAIN. RIGHT HAND G 24 PATENT AND SALINE LOCKED. LEFT UPPER ARM MIDLINE G 18 PATENT AND SALINE LOCKED. BED LOW AND LOCKED. SIDE RAILS UP X3. CALL LIGHT WITHIN REACH. WILL ENDORSE TO VENTILATION EQUIPMENT TENDER.
[2020-09-30] MEDS: ATORVASTATIN 40 MG TABLET PO SCH (22:03)
--- NOTE | 2020-09-30 23:29 | NUR ---
STONEWORKING BELT SANDER OPENING NOTE: RECEIVED PATIENT ON BED, AWAKE, A/O X3. KYRGYZ SPEAKING. NO S/S OF RESPIRATORY DISTRESS, CALM, ON ROOM AIR, NO SOB, PATIENT IS ABLE TO MAKE NEEDS KNOWN. SAFETY PRECAUTIONS ARE IN PLACE. BED LOCKED AND IN THE LOWEST POSITION. SIDE RAILS UP, CALL LIGHT WITHIN REACH. WILL CONTINUE TO MONITOR THROUGHOUT SHIFT.
[2020-10-01] MEDS: HEPARIN SODIUM, PORCINE 5000 UNITS/1 ML VIAL SQ SCH ×4 (05:36→21:05)
--- NOTE | 2020-10-01 07:02 | NUR ---
BARKING MACHINE FEEDER CLOSING NOTE: PATIENT LAYING ON BED, AWAKE, A/O X3. SKIN ASSESSMENT DONE, PICTURES TAKEN AND PLACED IN PATIENT CHART. PATIENT HAS CT NEEDLE BIOPSY D/T LEFT SUBCLAVIAN MASS MORNING IS ON NPO. NO S/S OF RESPIRATORY DISTRESS, NO SOB, PATIENT IS ABLE TO MAKE NEEDS KNOWN. SAFETY PRECAUTIONS ARE IN PLACE. BED LOCKED AND IN THE LOWEST POSITION. SIDE RAILS UP, CALL LIGHT WITHIN REACH. WILL CONTINUE TO MONITOR THROUGHOUT SHIFT.
--- NOTE | 2020-10-01 07:50 | NUR ---
MS/RN OPENING NOTE RECEIVED PATIENT FROM MANAGER SOLUTION. PATIENT A/O X3 NORTH KOREAN SPEAKING AWAKE IN BED. PATIENT ON ROOM AIR, TOLERATING WELL. BREATHING EVEN, NON LABORED. TEAGAN MIDLINE INTACT AND PATENT. NO ACUTE DISTRESS NOTED. SAFETY MEASURES IN PLACE, BED LOCKED AND IN LOWEST POSITION, CALL LIGHT WITHIN REACH. WILL CONTINUE TO MONITOR AND ENSURE SAFETY.
[2020-10-01 08:00] VITALS: BP 139/62
[2020-10-01] MEDS: CITALOPRAM HYDROBROMIDE 10 MG TABLET PO SCH (08:35)
[2020-10-01] MEDS: PANTOPRAZOLE 40 MG TABLET.DR PO SCH ×2 (08:36→20:55)
[2020-10-01] MEDS: LOSARTAN POTASSIUM 25 MG TABLET PO SCH ×2 (08:36→16:20)
[2020-10-01] MEDS: HYDROCHLOROTHIAZIDE 25 MG TABLET PO SCH (08:36)
--- NOTE | 2020-10-01 08:37 | NUR ---
MS/RN NOTE PATIENT IS NPO WILL HAVE BIOPSY. PATIENT MEDICATION WAS NOT GIVEN DUE TO NPO STATUS.
[2020-10-01 08:58] LABS: BASOPHILS % (AUTO) 0.3 % (0.0-2.0); EOSINOPHILS % (AUTO) 0.5 % (0.0-6.0); HEMATOCRIT 25 % (33-45); HEMOGLOBIN 8.4 g/dL (11.5-14.8); LYMPHOCYTES # (AUTO) 0.8 /CMM (0.8-4.8); LYMPHOCYTES % (AUTO) 6.7 % (20.0-44.0); MEAN CORPUSCULAR HGB CONC 34 g/dl (31.0-36.0); MEAN CORPUSCULAR VOLUME 92 fL (82-100); MONOCYTES # (AUTO) 0.8 /CMM (0.1-1.30); NEUTROPHILS # (AUTO) 10.9 /CMM (1.8-8.9); NEUTROPHILS % (AUTO) 86.5 % (43.0-81.0); PLATELET COUNT (AUTO) 347 /CMM (150-450); RED BLOOD CELL COUNT(AUTO) 2.71 MIL/uL (4.0-5.2); WHITE BLOOD COUNT (AUTO) 12.6 K/uL (4.3-11.0)
[2020-10-01 09:09] LABS: CALCIUM, SERUM 8.6 mg/dL (8.5-10.1); CREATININE 0.9 mg/dL (0.6-1.3); POTASSIUM 3.7 mmol/L (3.5-5.1)
[2020-10-01 16:00] VITALS: BP 133/56
[2020-10-01] MEDS: ENSURE ENLIVE 237 ML LIQUID (VANILLA) PO SCH (16:21)
--- NOTE | 2020-10-01 18:32 | NUR ---
MS/RN CLOSING NOTE . PATIENT A/O X3 LIBERIAN SPEAKING AWAKE IN BED. PATIENT ON ROOM AIR, TOLERATING WELL. BREATHING EVEN, NON LABORED. TEAGAN MIDLINE INTACT AND PATENT. NO ACUTE DISTRESS NOTED. SAFETY MEASURES IN PLACE, BED LOCKED AND IN LOWEST POSITION, CALL LIGHT WITHIN REACH. WILL CONTINUE TO MONITOR AND ENSURE SAFETY.
--- NOTE | 2020-10-01 19:15 | NUR ---
MS/RN OPENING NOTE REPORT RECIEVED FROM KRISTI HAAS. PATIENT A/O X3 ZAMBIAN SPEAKING AWAKE IN BED. PATIENT ON ROOM AIR, BREATHING EVEN, NON LABORED DENIES SOB. TEAGAN MIDLINE INTACT AND PATENT. NO ACUTE DISTRESS NOTED. SAFETY MEASURES IN PLACE, BED LOCKED AND IN LOWEST POSITION, CALL LIGHT WITHIN REACH. WILL CONTINUE TO MONITOR. PT PLAN IS TO HAVE BIOPSY IN THE AM.
[2020-10-01 20:41] VITALS: BP 126/51
[2020-10-01] MEDS: ATORVASTATIN 40 MG TABLET PO SCH (20:55)
--- NOTE | 2020-10-01 21:06 | NUR ---
MISSED DOSE AM DOES OF HEPARIN PT TO HAVE SCHEDULED BIOPSY IN THE AM.
[2020-10-02 06:45] LABS: BASOPHILS % (AUTO) 0.3 % (0.0-2.0); EOSINOPHILS % (AUTO) 0.7 % (0.0-6.0); HEMATOCRIT 23 % (33-45); HEMOGLOBIN 7.8 g/dL (11.5-14.8); LYMPHOCYTES # (AUTO) 0.8 /CMM (0.8-4.8); LYMPHOCYTES % (AUTO) 7.2 % (20.0-44.0); MEAN CORPUSCULAR HGB CONC 34 g/dl (31.0-36.0); MEAN CORPUSCULAR VOLUME 93 fL (82-100); MONOCYTES # (AUTO) 0.9 /CMM (0.1-1.30); MONOCYTES % (AUTO) 8.1 % (2.0-12.0); NEUTROPHILS # (AUTO) 9.5 /CMM (1.8-8.9); NEUTROPHILS % (AUTO) 83.7 % (43.0-81.0); PLATELET COUNT (AUTO) 311 /CMM (150-450); RED BLOOD CELL COUNT(AUTO) 2.43 MIL/uL (4.0-5.2); WHITE BLOOD COUNT (AUTO) 11.3 K/uL (4.3-11.0)
[2020-10-02 07:16] LABS: ALBUMIN 1.6 g/dL (3.4-5.0); BILIRUBIN,TOTAL 0.5 mg/dL (0.2-1.0); CALCIUM, SERUM 8.8 mg/dL (8.5-10.1); PHOSPHORUS 3.1 mg/dL (2.5-4.9); POTASSIUM 3.7 mmol/L (3.5-5.1); TOTAL PROTEIN, SERUM 5.9 g/dL (6.4-8.2)
--- NOTE | 2020-10-02 07:45 | NUR ---
MS RN OPENING NOTES RECEIVED PATIENT IN BED, AWAKE, A/O X3. PATIENT ON ROOM AIR; BREATHING EVEN AND UNLABORED AT THIS TIME. NO COMPLAINS OF PAIN AT THIS TIME. LUE MIDLINE AND R HAND IV ACCESS G # 24 PRESENT AND INTACT. SAFETY PRECAUTIONS IN PLACE; BED IN LOW POSITION AND LOCKED, RAILS UP X2, CALL LIGHT WITHIN REACH. WILL CONTINUE TO MONITOR PATIENT.
[2020-10-02 08:00] VITALS: BP 117/64
[2020-10-02] MEDS: ENSURE ENLIVE 237 ML LIQUID (VANILLA) PO SCH ×2 (08:00→16:58)
[2020-10-02] MEDS: CITALOPRAM HYDROBROMIDE 10 MG TABLET PO SCH (08:34)
[2020-10-02] MEDS: PANTOPRAZOLE 40 MG TABLET.DR PO SCH ×2 (08:34→21:58)
[2020-10-02] MEDS: HYDROCHLOROTHIAZIDE 25 MG TABLET PO SCH (08:34)
[2020-10-02] MEDS: LOSARTAN POTASSIUM 25 MG TABLET PO SCH ×2 (08:35→16:58)
[2020-10-02] MEDS: HEPARIN SODIUM, PORCINE 5000 UNITS/1 ML VIAL SQ SCH ×2 (12:04→22:00)
--- NOTE | 2020-10-02 13:00 | NUR ---
MS RN NOTES PATIENT LEFT FOR BIOPSY
[2020-10-02 16:00] VITALS: BP 133/63
--- NOTE | 2020-10-02 17:03 | NUR ---
MS RN NOTES PATIENT COMPLAINING OF MILD ABDOMINAL PAIN. PATIENT STATES IT IS NOT SOMETHING NEW FOR HER. SHE HAS BEEN HAVING SAME TYPE OF PAIN AT HOME AND SHE HAS BEEN TAKING TYLENOL TO ALLEVIATE THE PAIN. REQUESTING PRN PAIN MEDICATION. WILL ADMINISTER AND REASSESS.
[2020-10-02] MEDS: ACETAMINOPHEN 325 MG TABLET PO PRN (17:05)
--- NOTE | 2020-10-02 19:20 | NUR ---
MS RN CLOSING NOTES PATIENT REMAINS IN BED, AWAKE, A/O X3. PATIENT ON ROOM AIR; BREATHING EVEN AND UNLABORED DURING SHIFT. NO COMPLAINS OF PAIN AT THIS TIME. LUE MIDLINE AND R HAND IV ACCESS G # 24 PRESENT AND INTACT. ALL NEEDS ATTENDED DURING THE DAY. SAFETY PRECAUTIONS IN PLACE; BED IN LOW POSITION AND LOCKED, RAILS UP X2, CALL LIGHT WITHIN REACH. WILL ENDORSE TO DIRECTOR GLOBAL MARKET RESE[employer] NURSE.
--- NOTE | 2020-10-02 19:30 | NUR ---
MS/RN OPENING NOTES RECEIVED PATIENT IN BED RESTING. PATIENT IS ALERT AND ORIENTED X 4. PATIENTS BREATHING IS EVEN AND UNLABORED. NO SIGNS OF RESPIRATORY DISTRESS OR SOB NOTED. PATIENT HAS IV ACCESS ON LUE MIDLINE AND RIGHT HAND, INTACT AND FLUSHING WELL. PATIENT STATES NO PAIN AT THIS TIME. SAFETY MEASURES ARE IN PLACE, BED IS LOCKED AND PLACED IN THE LOW POSITION, SIDE RAILS UP X 2, CALL LIGHT IS WITHIN REACH. WILL CONTINUE TO MONITOR THROUGH OUT SHIFT.
[2020-10-02 20:00] VITALS: BP 122/49
[2020-10-02] MEDS: ATORVASTATIN 40 MG TABLET PO SCH (21:58)
[2020-10-03] MEDS: HEPARIN SODIUM, PORCINE 5000 UNITS/1 ML VIAL SQ SCH ×3 (05:30→22:36)
[2020-10-03 06:49] LABS: BASOPHILS % (AUTO) 0.2 % (0.0-2.0); EOSINOPHILS % (AUTO) 0.9 % (0.0-6.0); HEMATOCRIT 23 % (33-45); LYMPHOCYTES # (AUTO) 0.7 /CMM (0.8-4.8); LYMPHOCYTES % (AUTO) 5.9 % (20.0-44.0); MEAN CORPUSCULAR HGB CONC 35 g/dl (31.0-36.0); MEAN CORPUSCULAR VOLUME 93 fL (82-100); MONOCYTES # (AUTO) 0.8 /CMM (0.1-1.30); MONOCYTES % (AUTO) 7.2 % (2.0-12.0); NEUTROPHILS # (AUTO) 9.5 /CMM (1.8-8.9); NEUTROPHILS % (AUTO) 85.8 % (43.0-81.0); PLATELET COUNT (AUTO) 321 /CMM (150-450); RED BLOOD CELL COUNT(AUTO) 2.48 MIL/uL (4.0-5.2); WHITE BLOOD COUNT (AUTO) 11.1 K/uL (4.3-11.0)
--- NOTE | 2020-10-03 06:50 | NUR ---
MS/RN CLOSING NOTES PATIENT IN BED RESTING. PATIENT IS ALERT AND ORIENTED X 4. PATIENTS BREATHING IS EVEN AND UNLABORED. NO SIGNS OF RESPIRATORY DISTRESS OR SOB NOTED. PATIENT HAS IV ACCESS ON RIGHT HAND, INTACT AND FLUSHING WELL. PATIENTS NEEDS HAVE BEEN MET DURING SHIFT. SAFETY MEASURES ARE IN PLACE, BED IS LOCKED AND PLACED IN THE LOW POSITION, SIDE RAILS UP X 2, CALL LIGHT IS WITHIN REACH. WILL ENDORSE CARE TO DAY SHIFT NURSE.
--- NOTE | 2020-10-03 07:30 | NUR ---
MS/RN OPENING NOTE RECEIVED PATIENT RESTING IN BED. SLEEPING, ALERT AND ORIENTED X 4. ABLE TO MAKE NEEDS KNOWN. NO COMPLAINTS OF PAIN THIS MORNING. PRIMARILY THAI SPEAKING. PATIENT IS ON ROOM AIR WITH NO SIGNS OR SYMPTOMS OF RESPIRATORY DISTRESS. CALL LIGHT WITHIN REACH. ASPIRATION, FALL AND SAFETY PRECAUTIONS MAINTAINED. WILL CONTINUE TO MONITOR.
[2020-10-03 07:48] LABS: CALCIUM, SERUM 8.8 mg/dL (8.5-10.1); CREATININE 1.1 mg/dL (0.6-1.3); PHOSPHORUS 3.2 mg/dL (2.5-4.9); POTASSIUM 4.1 mmol/L (3.5-5.1)
[2020-10-03 08:00] VITALS: BP 116/65
[2020-10-03] MEDS: PANTOPRAZOLE 40 MG TABLET.DR PO SCH ×2 (09:19→22:36)
[2020-10-03] MEDS: CITALOPRAM HYDROBROMIDE 10 MG TABLET PO SCH (09:19)
[2020-10-03] MEDS: HYDROCHLOROTHIAZIDE 25 MG TABLET PO SCH (09:20)
[2020-10-03] MEDS: LOSARTAN POTASSIUM 25 MG TABLET PO SCH ×2 (09:20→16:28)
[2020-10-03] MEDS: ENSURE ENLIVE 237 ML LIQUID (VANILLA) PO SCH ×2 (09:24→16:29)
[2020-10-03] MEDS ORDERED: PANT40TA2 PO (10:42)
[2020-10-03] MEDS ORDERED: HEPA50008 SQ (10:42)
[2020-10-03] MEDS ORDERED: ACET325T53 PO (10:42)
[2020-10-03] MEDS ORDERED: LACT-246 PO (10:42)
--- NOTE | 2020-10-03 14:30 | NUR ---
MS/RN NOTES Patient transferred safely to [facility] via bed, received report from Augustus HAAS. Patient awake in bed, A&O x 4, Japanese speaking. Breathing even and non-labored on RA, no SOB noted. No cardiac distress noted. IV access noted on R hand #24g, patent and intact, and flushing well. Bed locked to its lowest position, side rails x 2 up, call light in hand. Will continue with current medical management.
--- NOTE | 2020-10-03 14:35 | NUR ---
RN MS NOTES PT IN BED, AWAKE, ALERT AND ORIENTED, NO COMPLAINT OF PAIN, BREATHING PATTERN NORMAL, NOT IN DISTRESS, INFORMED OF RAPID COVID TEST RESULTS, REPEAT COVID RAPID TEST DONE, DR. WHITAKER INFORMED, PT TRANSFERED TO ROOM 200, MD WILL SPEAK TO PT'S SON RAJANI, ORDERED COVID PCR TEST, REPORT GIVEN TO RAFA HAAS FOR CONTINUITY OF CARE.
[2020-10-03 16:00] VITALS: BP 131/51
[2020-10-03 17:52] LABS: BILIRUBIN,URINE NEGATIVE (NEGATIVE); COLOR,URINE YELLOW (YELLOW); LEUKOCYTE ESTERASE ,URINE SMALL (NEGATIVE); NITRITE, URINE NEGATIVE (NEGATIVE); PROTEIN,URINE NEGATIVE (NEGATIVE); UGLUCOSE NEGATIVE (NEGATIVE); UROBILINOGEN,URINE 0.2 EU/dL (0.2)
[2020-10-03 17:58] LABS: RBC,URINE 0-2 /HPF (0-2); WBC,URINE 21-50 /HPF (0-3)
[2020-10-03 17:59] LABS: BACTERIA,URINE 1+ /HPF (None Seen); COARSE GRANULAR CASTS,URINE Few /LPF (None Seen); HYALINE CASTS, URINE Few /LPF (None Seen); SQUAMOUS EPITHELIAL CELL,UR Few /HPF (None Seen); YEAST,URINE Few /HPF (None Seen)
[2020-10-03 20:00] VITALS: BP 125/62
--- NOTE | 2020-10-03 20:00 | NUR ---
RN NOTES RECEIVED PT. AWAKE ON BED, A/OX4, AMBULATORY, NOT IN DISTRESS, DENIES PAIN,CALL LIGHT WITHIN REACH, [id number], CONTINUE TO MONITOR
[2020-10-03] MEDS ORDERED: HEPARIN SODIUM, PORCINE 5000 UNITS/1 ML VIAL SQ SCH (21:00)
[2020-10-03] MEDS: ATORVASTATIN 40 MG TABLET PO SCH (22:37)
[2020-10-03] MEDS: ACETAMINOPHEN 325 MG TABLET PO PRN (22:38)
[2020-10-04] MEDS: HEPARIN SODIUM, PORCINE 5000 UNITS/1 ML VIAL SQ SCH ×2 (05:29→12:54)
--- NOTE | 2020-10-04 06:43 | NUR ---
RN NOTES AWAKE, MORNING CARE RENDERED, NOT IN DISTRESS, DENIES PAIN, [id number], CALL LIGHT WITHIN REACH,PT. NEEDS ATTENDED
--- NOTE | 2020-10-04 07:38 | NUR ---
MS RN NOTE PATIENT IN BED RESTING COMFORTABLY. PATIENT IN NO ACUTE DISTRESS. NO SOB NOTED. PATIENT BREATHING IS EVEN AND UNLABORED. PATIENT HOB IS ELEVATED. SAFETY PRECAUTIONS IN PLACE. PATIENT BED IS LOCKED AND IN LOWEST POSITION. CALL LIGHT WITHIN REACH. WILL CONTINUE TO MONITOR.
[2020-10-04 08:00] VITALS: BP 112/42
[2020-10-04] MEDS: LOSARTAN POTASSIUM 25 MG TABLET PO SCH (08:13)
[2020-10-04 08:23] VITALS: BP 112/42
[2020-10-04] MEDS: HYDROCHLOROTHIAZIDE 25 MG TABLET PO SCH (08:23)
[2020-10-04] MEDS: ENSURE ENLIVE 237 ML LIQUID (VANILLA) PO SCH (08:25)
[2020-10-04] MEDS: CITALOPRAM HYDROBROMIDE 10 MG TABLET PO SCH (09:27)
[2020-10-04] MEDS: PANTOPRAZOLE 40 MG TABLET.DR PO SCH (09:27)
[2020-10-04 11:32] LABS: BASOPHILS % (AUTO) 0.2 % (0.0-2.0); EOSINOPHILS % (AUTO) 0.6 % (0.0-6.0); HEMATOCRIT 25 % (33-45); HEMOGLOBIN 8.1 g/dL (11.5-14.8); LYMPHOCYTES # (AUTO) 0.6 /CMM (0.8-4.8); LYMPHOCYTES % (AUTO) 4.8 % (20.0-44.0); MEAN CORPUSCULAR HGB CONC 33 g/dl (31.0-36.0); MEAN CORPUSCULAR VOLUME 92 fL (82-100); MONOCYTES # (AUTO) 0.8 /CMM (0.1-1.30); NEUTROPHILS # (AUTO) 10.4 /CMM (1.8-8.9); NEUTROPHILS % (AUTO) 87.4 % (43.0-81.0); PLATELET COUNT (AUTO) 340 /CMM (150-450); RED BLOOD CELL COUNT(AUTO) 2.71 MIL/uL (4.0-5.2)
[2020-10-04 11:47] LABS: CALCIUM, SERUM 8.7 mg/dL (8.5-10.1); CREATININE 1.1 mg/dL (0.6-1.3); PHOSPHORUS 2.9 mg/dL (2.5-4.9)
[2020-10-04] MEDS ORDERED: PANT40TA2 PO (12:46)
[2020-10-04] MEDS ORDERED: APIX2.5T PO (12:46)
--- NOTE | 2020-10-04 15:50 | NUR ---
MS ROTARY MACHINE OPERATOR NOTE PATIENT MEDICALLY STABLE FOR DISCHARGE. PATIENT IN NO ACUTE DISTRESS. NO SOB NOTED. PATIENT BREATHING IS EVEN AND UNLABORED. PATIENT DC INSTRUCTIONS PROVIDED TO PATIENT AND SON. PATIENT AND SON VERBALIZED UNDERSTANDING. SON AWARE AND WANTS TO CONTINUE WITH POLST PROCESS AT SNF. SNF IS AWARE OF THAT. PATIENT ID BAND REMOVED. PATIENT IV REMOVED. PATIENT SKIN ASSESSED, NO NEW SKIN BREAKDOWN NOTED. PATIENT BELONGINGS WITH PATIENT. BELONGINGS LIST SIGNED. PATIENT KEPT CLEAN, DRY, AND COMFORTABLE THROUGHOUT SHIFT. NEEDS AND CONCERNS ADDRESSED. REPORT GIVEN TO [facility]. REPORT GIVEN TO 2 HYDROELECTRIC MACHINERY MECHANIC HELPER. AMBULANCE TO TAKE PATIENT TO SNF. MD AWARE OF DISCHARGE.
== END 2020-10-04 15:50 | DRG 299 ==
LOC: ER 19:01 → TRANSITION 21:34 → TELE 23:12 → MED 09-24 12:38 → MEDSG2 10-03 14:47
PROVIDERS: ADMIT Internal Medicine; ATTEND Registered Nurse
PROC: 30233N1 Transfusion of Nonautologous Red Blood Cells into Peripheral Vein, Percutaneous Approach (ICD-10-PCS; 2020-09-22)
PROC: 06H03DZ Insertion of Intraluminal Device into Inferior Vena Cava, Percutaneous Approach (ICD-10-PCS; principal; 2020-09-25)
PROC: 05HC33Z Insertion of Infusion Device into Left Basilic Vein, Percutaneous Approach (ICD-10-PCS; 2020-09-30)
PROC: 0JBF3ZX Excision of Left Upper Arm Subcutaneous Tissue and Fascia, Percutaneous Approach, Diagnostic (ICD-10-PCS; 2020-10-02)
DX: I82.412 Acute embolism and thrombosis of left femoral vein (principal); N17.0 Acute kidney failure with tubular necrosis; E43 Unspecified severe protein-calorie malnutrition; J18.9 Pneumonia, unspecified organism; D68.59 Other primary thrombophilia; L03.116 Cellulitis of left lower limb; I82.432 Acute embolism and thrombosis of left popliteal vein; I12.9 Hypertensive chronic kidney disease with stage 1 through stage 4 chronic kidney disease, or unspecified chronic kidney disease; N18.9 Chronic kidney disease, unspecified; N13.9 Obstructive and reflux uropathy, unspecified; R73.9 Hyperglycemia, unspecified; Z74.09 Other reduced mobility; M19.90 Unspecified osteoarthritis, unspecified site; Z20.822 Contact with and (suspected) exposure to COVID-19; Z85.42 Personal history of malignant neoplasm of other parts of uterus; N28.1 Cyst of kidney, acquired; Z90.710 Acquired absence of both cervix and uterus; Z92.3 Personal history of irradiation; D50.9 Iron deficiency anemia, unspecified; E78.00 Pure hypercholesterolemia, unspecified; E83.52 Hypercalcemia; I70.0 Atherosclerosis of aorta; K57.30 Diverticulosis of large intestine without perforation or abscess without bleeding; R91.1 Solitary pulmonary nodule; R19.09 Other intra-abdominal and pelvic swelling, mass and lump; Z96.652 Presence of left artificial knee joint
CPT/HCPCS: 36410; 36415; 71045-TC; 71250-TC; 73564-TC; 73590-TC; 74018; 76770-TC; 76942-TC; 80048-TC; 80053-TC; 80061-TC; 80076-TC; 80202-TC; 81001; 82105; 82378; 82570-TC; 82728-TC; 82784; 83540-TC; 83615-TC; 83735-TC; 84100-TC; 84155; 84155-TC; 84165; 84300-TC; 84443-TC; 84484-TC; 84702-TC; 85025-TC; 85027-TC; 85610-TC; 85730-TC; 86304; 86334; 86850-TC; 87040-TC; 87081-TC; 87086-TC; 88305-TC; 88333-TC; 88341; 88342; 93307-TC; 93971-TC; 97112-TC; 97116-TC; 97530-TC; C1769; C1880; C9113; G0378; J0690; J0696; J1644; J2405; J2543; J2704; J2916; J3370; J3490; J7030; J7042; J7050; J7060; P9016-BL; Q9966; Q9967; U0003